=== PATIENT | female | born 1940 | race Caucasian/White ===

== ENCOUNTER 2019-04-30 15:38 | Inpatient (IN) | payer OTHER, MEDICAID ==
[~2019-04-30] VITALS: Ht 165.1 cm; Wt 65.8 kg
[2019-04-30 15:47] VITALS: BP_SYST 156
[2019-04-30] MEDS ORDERED: NS 500 ML IV ONE (16:00)
[2019-04-30] MEDS ORDERED: HALOPERIDOL LACTATE 5 MG/ML VIAL IM ONE (16:45)
[2019-04-30] MEDS ORDERED: LORazepam 2 MG/ML VIAL IM ONE (16:45)
[2019-04-30] MEDS ORDERED: LORazepam 2 MG/ML VIAL ONE (16:47)
[2019-04-30 17:58] LABS: COLOR,URINE YELLOW (YELLOW)
[2019-04-30 17:59] LABS: BILIRUBIN,URINE NEGATIVE (NEGATIVE); BLOOD, URINE TRACE (NEGATIVE); CLARITY/URINE HAZY (CLEAR); GLUCOSE,URINE NEGATIVE (NEGATIVE); KETONES,URINE NEGATIVE (NEGATIVE); LEUKOCYTE ESTERASE ,URINE 1+ (NEGATIVE); NITRITE, URINE POSITIVE (NEGATIVE); PH,URINE 6.5 (5.0-8.0); PROTEIN URINE 1+ (NEGATIVE); UROBILINOGEN,URINE 0.2 (0.2-1.0)
[2019-04-30 18:00] LABS: BACTERIA,URINE MANY /HPF (None Seen); MUCUS,URINE None Seen /LPF (None Seen); RBC,URINE NONE SEEN /HPF (0-3)
[2019-04-30] MEDS ORDERED: cefTRIAXone 1 GM in D5W 50 ML IV ONE (18:15)
[2019-04-30 18:53] LABS: BASOPHILS % (AUTO) 0.3 % (0.0-2.0); EOSINOPHILS # (AUTO) 0.1 K/uL (0.0-0.4); EOSINOPHILS % (AUTO) 1.2 % (0.0-4.0); HEMATOCRIT 40.7 % (36-48); HEMOGLOBIN 13.9 g/dL (12.0-16.0); LYMPHOCYTES # (AUTO) 1.6 K/uL (1.0-5.5); LYMPHOCYTES % (AUTO) 16.3 % (20.5-51.5); MEAN CORPUSCULAR HEMOGLOBIN 32 pg (27-31); MEAN CORPUSCULAR HGB CONC 34 % (32-36); MEAN CORPUSCULAR VOLUME 92 fL (79.0-98.0); MONOCYTES # (AUTO) 0.9 K/uL (0.0-1.0); MONOCYTES % (AUTO) 9.4 % (1.7-9.3); NEUTROPHILS % (AUTO) 72.8 % (40.0-70.0); PLATELET COUNT (AUTO) 291 K/uL (130-430); RED BLOOD CELL COUNT(AUTO) 4.41 MIL/uL (4.2-6.2); RED CELL DISTRIBUTION WIDTH 13.3 % (9.0-15.0); WHITE BLOOD COUNT (AUTO) 9.7 K/uL (4.8-10.8)
[2019-04-30 19:05] LABS: ANION GAP 9 (5-15); CALCIUM 9.9 mg/dL (8.4-11.0); CHLORIDE 104 mmol/L (98-107); CREATININE 1.13 mg/dL (0.55-1.30); GLUCOSE 101 mg/dL (70-99); POTASSIUM 3.6 mmol/L (3.5-5.1); SODIUM SERUM 136 mmol/L (136-145); UREA NITROGEN, BLOOD 20 mg/dL (8-21)
[2019-04-30 19:08] LABS: INR 1.1 (0.8-1.2); PROTHROMBIN TIME 11.1 SECS (9.5-12.5)
[2019-04-30 19:11] LABS: ALANINE AMINOTRANSFERASE 21 U/L (12-78); ALBUMIN 4.1 g/dL (3.4-4.8); ASPARTATE AMINOTRANSFERASE 28 U/L (10-37); TOTAL BILIRUBIN 0.6 mg/dL (0.0-1.0)
[2019-04-30] MEDS ORDERED: ASPIRIN 81 MG TAB.CHEW PO ONE (19:15)
[2019-04-30] MEDS ORDERED: cefTRIAXone 1 GM VIAL ONE (19:23)
[2019-04-30 20:33] VITALS: BP_SYST 143
[2019-04-30] MEDS ORDERED: KCL 20 mEq in D5/0.45NS 1000mL 1,000 ML IV ONE (20:39)
[2019-04-30] MEDS: KCL 20 mEq in D5/0.45NS 1000mL 1,000 ML IV SCH (23:02)
[2019-05-01 00:03] VITALS: BP_SYST 115
[2019-05-01 08:04] VITALS: BP_SYST 137
[2019-05-01] MEDS: HALOPERIDOL 5 MG TABLET (HALDOL) PO SCH ×4 (09:00→20:25)
[2019-05-01] MEDS ORDERED: DIPHENHYDRAMINE HCL 25 MG CAPSULE PO PRN (11:00)
[2019-05-01] MEDS ORDERED: LORazepam 2 MG/ML VIAL IM ONE (11:00)
[2019-05-01] MEDS ORDERED: HALOPERIDOL 5 MG TABLET (HALDOL) PO PRN (11:00)
[2019-05-01] MEDS ORDERED: DIPHENHYDRAMINE INJ 50 MG/ML VIAL IM ONE (11:00)
[2019-05-01] MEDS ORDERED: HALOPERIDOL LACTATE 5 MG/ML VIAL IM ONE (11:00)
[2019-05-01] MEDS ORDERED: LORazepam 2 MG/ML VIAL ONE (11:10)
[2019-05-01] MEDS ORDERED: DIPHENHYDRAMINE INJ 50 MG/ML VIAL ONE (11:11)
[2019-05-01] MEDS ORDERED: HALOPERIDOL LACTATE 5 MG/ML VIAL ONE (11:11)
[2019-05-01 12:29] VITALS: BP_SYST 151
[2019-05-01] MEDS: KCL 20 mEq in D5/0.45NS 1000mL 1,000 ML IV SCH ×2 (16:00→21:55)
[2019-05-01] MEDS: cefTRIAXone 1 GM in D5W 50 ML IV SCH (16:01)
[2019-05-01 16:51] VITALS: BP_SYST 168
[2019-05-01] MEDS: ENOXAPARIN SODIUM 40 MG/0.4 ML SYRINGE SUBCUT SCH (21:57)
[2019-05-01] MEDS: LORazepam 1 MG TABLET PO PRN (21:58)
[2019-05-02 00:12] VITALS: BP_SYST 156
[2019-05-02 06:51] VITALS: BP_SYST 135
[2019-05-02 07:53] LABS: BASOPHILS % (AUTO) 0.4 % (0.0-2.0); EOSINOPHILS # (AUTO) 0.1 K/uL (0.0-0.4); EOSINOPHILS % (AUTO) 0.5 % (0.0-4.0); HEMATOCRIT 41.3 % (36-48); HEMOGLOBIN 14.3 g/dL (12.0-16.0); LYMPHOCYTES # (AUTO) 1.3 K/uL (1.0-5.5); LYMPHOCYTES % (AUTO) 12.8 % (20.5-51.5); MEAN CORPUSCULAR HEMOGLOBIN 32 pg (27-31); MEAN CORPUSCULAR HGB CONC 35 % (32-36); MEAN CORPUSCULAR VOLUME 92 fL (79.0-98.0); MONOCYTES # (AUTO) 0.9 K/uL (0.0-1.0); MONOCYTES % (AUTO) 8.8 % (1.7-9.3); NEUTROPHILS # (AUTO) 8.1 K/uL (1.8-7.7); NEUTROPHILS % (AUTO) 77.5 % (40.0-70.0); PLATELET COUNT (AUTO) 302 K/uL (130-430); RED BLOOD CELL COUNT(AUTO) 4.48 MIL/uL (4.2-6.2); RED CELL DISTRIBUTION WIDTH 13.5 % (9.0-15.0); WHITE BLOOD COUNT (AUTO) 10.5 K/uL (4.8-10.8)
[2019-05-02 08:00] VITALS: BP_SYST 130
[2019-05-02 08:31] LABS: ANION GAP 11 (5-15); CALCIUM 9.3 mg/dL (8.4-11.0); CHLORIDE 104 mmol/L (98-107); CREATININE 1.01 mg/dL (0.55-1.30); GLUCOSE 104 mg/dL (70-99); POTASSIUM 3.4 mmol/L (3.5-5.1); SODIUM SERUM 137 mmol/L (136-145); UREA NITROGEN, BLOOD 13 mg/dL (8-21)
[2019-05-02] MEDS: amLODIPine BESYLATE 10 MG TABLET PO SCH (08:50)
[2019-05-02] MEDS: HALOPERIDOL 5 MG TABLET (HALDOL) PO SCH ×3 (08:50→21:22)
[2019-05-02 12:10] VITALS: BP_SYST 133
[2019-05-02] MEDS: KCL 20 mEq in D5/0.45NS 1000mL 1,000 ML IV SCH (12:17)
[2019-05-02 16:04] VITALS: BP_SYST 144
[2019-05-02] MEDS: cefTRIAXone 1 GM in D5W 50 ML IV SCH (16:23)
[2019-05-02] MEDS ORDERED: ASPIRIN 81 MG TAB.CHEW PO ONE (19:15)
[2019-05-02 21:15] VITALS: BP_SYST 130
[2019-05-02] MEDS: ENOXAPARIN SODIUM 40 MG/0.4 ML SYRINGE SUBCUT SCH (21:23)
[2019-05-02] MEDS: LORazepam 1 MG TABLET PO PRN (23:06)
[2019-05-03 00:15] VITALS: BP_SYST 147
[2019-05-03] MEDS: KCL 20 mEq in D5/0.45NS 1000mL 1,000 ML IV SCH ×3 (00:35→17:06)
[2019-05-03 00:51] LABS: CKMB RELATIVE INDEX 0.3 (0.0-2.9); CREATINE KINASE MB 3.8 ng/mL (0-3.6)
[2019-05-03] MEDS ORDERED: traZODone HCL 50 MG TABLET (DESYREL) PO PRN (05:45)
[2019-05-03 06:42] LABS: BASOPHILS # (AUTO) 0.1 K/uL (0.0-0.2); BASOPHILS % (AUTO) 0.5 % (0.0-2.0); EOSINOPHILS # (AUTO) 0.3 K/uL (0.0-0.4); EOSINOPHILS % (AUTO) 2.5 % (0.0-4.0); HEMOGLOBIN 13.9 g/dL (12.0-16.0); LYMPHOCYTES # (AUTO) 2.1 K/uL (1.0-5.5); LYMPHOCYTES % (AUTO) 20.9 % (20.5-51.5); MEAN CORPUSCULAR HEMOGLOBIN 32 pg (27-31); MEAN CORPUSCULAR HGB CONC 35 % (32-36); MEAN CORPUSCULAR VOLUME 91 fL (79.0-98.0); MONOCYTES # (AUTO) 0.9 K/uL (0.0-1.0); MONOCYTES % (AUTO) 8.4 % (1.7-9.3); NEUTROPHILS % (AUTO) 67.7 % (40.0-70.0); PLATELET COUNT (AUTO) 296 K/uL (130-430); RED BLOOD CELL COUNT(AUTO) 4.39 MIL/uL (4.2-6.2); RED CELL DISTRIBUTION WIDTH 13.3 % (9.0-15.0); WHITE BLOOD COUNT (AUTO) 10.3 K/uL (4.8-10.8)
[2019-05-03 07:11] LABS: ANION GAP 11 (5-15); CALCIUM 9.3 mg/dL (8.4-11.0); CHLORIDE 103 mmol/L (98-107); CREATININE 0.99 mg/dL (0.55-1.30); GLUCOSE 114 mg/dL (70-99); POTASSIUM 3.6 mmol/L (3.5-5.1); SODIUM SERUM 136 mmol/L (136-145); UREA NITROGEN, BLOOD 11 mg/dL (8-21)
[2019-05-03 07:27] LABS: ALANINE AMINOTRANSFERASE 38 U/L (12-78); ALBUMIN 3.6 g/dL (3.4-4.8); ASPARTATE AMINOTRANSFERASE 65 U/L (10-37); THYROID STIMULATING HORMONE 1.26 uIu/mL (0.36-3.74); TOTAL BILIRUBIN 0.6 mg/dL (0.0-1.0)
[2019-05-03 07:45] LABS: CHOLESTEROL 176 mg/dL (<200); HDL CHOLESTEROL 64 mg/dL (>55); LDL CHOLESTEROL 97 mg/dL (<100); TRIGLYCERIDES 123 mg/dL (30-150)
[2019-05-03 08:02] VITALS: BP_SYST 137
[2019-05-03] MEDS: amLODIPine BESYLATE 10 MG TABLET PO SCH (09:31)
[2019-05-03] MEDS: clonazePAM 0.5 MG TABLET PO SCH ×3 (09:31→20:18)
[2019-05-03] MEDS: ASPIRIN 81 MG TAB.CHEW PO SCH (09:32)
[2019-05-03] MEDS: HALOPERIDOL 5 MG TABLET (HALDOL) PO SCH ×4 (09:32→20:18)
[2019-05-03 12:22] VITALS: BP_SYST 130
[2019-05-03] MEDS: cefTRIAXone 1 GM in D5W 50 ML IV SCH (16:10)
[2019-05-03 16:17] VITALS: BP_SYST 126; BP_SYST 93
[2019-05-03 20:00] VITALS: BP_SYST 155
[2019-05-03] MEDS: traZODone HCL 50 MG TABLET (DESYREL) PO SCH (20:18)
[2019-05-03] MEDS: ENOXAPARIN SODIUM 40 MG/0.4 ML SYRINGE SUBCUT SCH (20:20)
[2019-05-04] VITALS (7 sets, daily range): BP systolic 117–142
[2019-05-04] MEDS: ASPIRIN 81 MG TAB.CHEW PO SCH (08:14)
[2019-05-04] MEDS: QUEtiapine FUMARATE 25 MG TABLET PO SCH ×2 (08:15→15:07)
[2019-05-04] MEDS: amLODIPine BESYLATE 10 MG TABLET PO SCH (08:15)
[2019-05-04] MEDS: HALOPERIDOL 5 MG TABLET (HALDOL) PO SCH ×3 (08:15→21:22)
[2019-05-04] MEDS: clonazePAM 0.5 MG TABLET PO SCH ×3 (08:15→21:22)
[2019-05-04 08:44] LABS: BASOPHILS # (AUTO) 0.1 K/uL (0.0-0.2); BASOPHILS % (AUTO) 0.7 % (0.0-2.0); EOSINOPHILS # (AUTO) 0.3 K/uL (0.0-0.4); EOSINOPHILS % (AUTO) 4.2 % (0.0-4.0); HEMATOCRIT 39.7 % (36-48); HEMOGLOBIN 13.5 g/dL (12.0-16.0); LYMPHOCYTES # (AUTO) 1.4 K/uL (1.0-5.5); LYMPHOCYTES % (AUTO) 16.7 % (20.5-51.5); MEAN CORPUSCULAR HEMOGLOBIN 32 pg (27-31); MEAN CORPUSCULAR HGB CONC 34 % (32-36); MEAN CORPUSCULAR VOLUME 93 fL (79.0-98.0); MONOCYTES # (AUTO) 0.6 K/uL (0.0-1.0); MONOCYTES % (AUTO) 7.5 % (1.7-9.3); NEUTROPHILS # (AUTO) 5.8 K/uL (1.8-7.7); NEUTROPHILS % (AUTO) 70.9 % (40.0-70.0); PLATELET COUNT (AUTO) 292 K/uL (130-430); RED BLOOD CELL COUNT(AUTO) 4.28 MIL/uL (4.2-6.2); RED CELL DISTRIBUTION WIDTH 13.4 % (9.0-15.0); WHITE BLOOD COUNT (AUTO) 8.1 K/uL (4.8-10.8)
[2019-05-04 09:03] LABS: ANION GAP 9 (5-15); CHLORIDE 105 mmol/L (98-107); CREATININE 0.82 mg/dL (0.55-1.30); GLUCOSE 114 mg/dL (70-99); POTASSIUM 3.4 mmol/L (3.5-5.1); SODIUM SERUM 139 mmol/L (136-145); UREA NITROGEN, BLOOD 7 mg/dL (8-21)
[2019-05-04] MEDS: KCL 20 mEq in D5/0.45NS 1000mL 1,000 ML IV SCH (09:33)
[2019-05-04] MEDS: cefTRIAXone 1 GM in D5W 50 ML IV SCH (15:06)
[2019-05-04] MEDS ORDERED: QUEtiapine FUMARATE 25 MG TABLET PO SCH (21:00)
[2019-05-04] MEDS ORDERED: FLU VACC TS2019(65UP)/MF59C/PF 45 MCG/0.5 ML SYRINGE I.M. PRN (21:00)
[2019-05-04] MEDS: traZODone HCL 50 MG TABLET (DESYREL) PO SCH (21:21)
[2019-05-04] MEDS ORDERED: FLU VACC TS2019(65UP)/MF59C/PF 45 MCG/0.5 ML SYRINGE I.M. ONE (21:25)
[2019-05-04] MEDS: ENOXAPARIN SODIUM 40 MG/0.4 ML SYRINGE SUBCUT SCH (21:30)
[2019-05-05 15:39] LABS: CHOLESTEROL 192 mg/dL (<200); HDL CHOLESTEROL 65 mg/dL (>55); LDL CHOLESTEROL 109 mg/dL (<100); TRIGLYCERIDES 95 mg/dL (30-150)
== END 2019-05-04 21:50 | DRG 689 ==
LOC: SED 15:38 → STU 19:14 → SMU 05-01 16:17 → STU 05-02 21:07
PROVIDERS: ADMIT Family Medicine; ATTEND Family Medicine
DX: N39.0 Urinary tract infection, site not specified (principal); I21.A1 Myocardial infarction type 2; F03.90 Unspecified dementia, unspecified severity, without behavioral disturbance, psychotic disturbance, mood disturbance, and anxiety; E86.0 Dehydration; M19.90 Unspecified osteoarthritis, unspecified site; N18.9 Chronic kidney disease, unspecified; G40.909 Epilepsy, unspecified, not intractable, without status epilepticus; I12.9 Hypertensive chronic kidney disease with stage 1 through stage 4 chronic kidney disease, or unspecified chronic kidney disease; G47.00 Insomnia, unspecified; Z78.1 Physical restraint status; Z79.899 Other long term (current) drug therapy; R40.2243 Coma scale, best verbal response, confused conversation, at hospital admission
CPT/HCPCS: 36415; 71045; 80048; 80053; 80061; 81000-TC; 82550-TC; 82553-TC; 83036; 83605; 83735-TC; 84443-TC; 84484; 85025; 85610-TC; 85730-TC; 87040-TC; 87081; 87086; 87186-TC; 93005; 93306; 96365; 96372; 97530-GP; 99285; G0378; J0696; J1200; J1630; J1650; J2060; J7040; J7060; Q0163

== ENCOUNTER 2019-05-08 13:52 | Outpatient (CLI) | payer OTHER ==
[2019-05-08 15:37] LABS: BILIRUBIN,URINE NEGATIVE (NEGATIVE); BLOOD, URINE 1+ (NEGATIVE); CLARITY/URINE CLOUDY (CLEAR); COLOR,URINE YELLOW (YELLOW); GLUCOSE,URINE NEGATIVE (NEGATIVE); KETONES,URINE NEGATIVE (NEGATIVE); LEUKOCYTE ESTERASE ,URINE NEGATIVE (NEGATIVE); NITRITE, URINE NEGATIVE (NEGATIVE); PROTEIN URINE 1+ (NEGATIVE); UROBILINOGEN,URINE 0.2 (0.2-1.0)
[2019-05-08 15:39] LABS: BASOPHILS % (AUTO) 0.3 % (0.0-2.0); EOSINOPHILS # (AUTO) 0.5 K/uL (0.0-0.4); EOSINOPHILS % (AUTO) 3.4 % (0.0-4.0); HEMOGLOBIN 13.7 g/dL (12.0-16.0); LYMPHOCYTES # (AUTO) 1.5 K/uL (1.0-5.5); LYMPHOCYTES % (AUTO) 9.6 % (20.5-51.5); MEAN CORPUSCULAR HEMOGLOBIN 32 pg (27-31); MEAN CORPUSCULAR HGB CONC 34 % (32-36); MEAN CORPUSCULAR VOLUME 92 fL (79.0-98.0); RED BLOOD CELL COUNT(AUTO) 4.34 MIL/uL (4.2-6.2); WHITE BLOOD COUNT (AUTO) 15.5 K/uL (4.8-10.8)
[2019-05-08 15:45] LABS: ANION GAP 9 (5-15); CALCIUM 9.8 mg/dL (8.4-11.0); CHLORIDE 102 mmol/L (98-107); CREATININE 1.14 mg/dL (0.55-1.30); GLUCOSE 127 mg/dL (70-99); POTASSIUM 3.4 mmol/L (3.5-5.1); SODIUM SERUM 139 mmol/L (136-145); UREA NITROGEN, BLOOD 38 mg/dL (8-21)
[2019-05-08 15:54] LABS: BASOPHILS # (AUTO) 0.1 K/uL (0.0-0.2); HEMATOCRIT 39.7 % (36-48); MONOCYTES # (AUTO) 1.1 K/uL (0.0-1.0); MONOCYTES % (AUTO) 7.1 % (1.7-9.3); NEUTROPHILS # (AUTO) 12.3 K/uL (1.8-7.7); NEUTROPHILS % (AUTO) 79.6 % (40.0-70.0); PLATELET COUNT (AUTO) 317 K/uL (130-430); RED CELL DISTRIBUTION WIDTH 13.7 % (9.0-15.0)
[2019-05-08 16:36] LABS: BACTERIA,URINE MANY /HPF (None Seen); COARSE GRANULAR CASTS,URINE 0-10 /LPF (None Seen); URINE AMORPHOUS URATE 2+ /HPF (None Seen)
[2019-05-08 16:37] LABS: MUCUS,URINE 1+ /LPF (None Seen)
== END 2019-05-08 17:54 | disposition home or self-care (01) ==
LOC: SLB 13:52
PROVIDERS: ATTEND Psychiatry & Neurology Psychiatry
DX: Z00.00 Encounter for general adult medical examination without abnormal findings (principal)
CPT/HCPCS: 36415; 80048; 81000-TC; 85025; 87086

== ENCOUNTER → 2019-05-10 | Outpatient (CLI) | payer OTHER ==
[2019-05-10 12:14] LABS: ANION GAP 10 (5-15); CHLORIDE 105 mmol/L (98-107); GLUCOSE 128 mg/dL (70-99); POTASSIUM 4.3 mmol/L (3.5-5.1); SODIUM SERUM 141 mmol/L (136-145); UREA NITROGEN, BLOOD 40 mg/dL (8-21)
[2019-05-10 13:17] LABS: BILIRUBIN,URINE NEGATIVE (NEGATIVE); BLOOD, URINE 2+ (NEGATIVE); CLARITY/URINE CLEAR (CLEAR); COLOR,URINE YELLOW (YELLOW); GLUCOSE,URINE NEGATIVE (NEGATIVE); KETONES,URINE NEGATIVE (NEGATIVE); LEUKOCYTE ESTERASE ,URINE NEGATIVE (NEGATIVE); NITRITE, URINE NEGATIVE (NEGATIVE); PH,URINE 5.5 (5.0-8.0); PROTEIN URINE 1+ (NEGATIVE); UROBILINOGEN,URINE 0.2 (0.2-1.0)
[2019-05-10 13:21] LABS: BACTERIA,URINE FEW /HPF (None Seen); RBC,URINE 20-50 /HPF (0-3); YEAST,URINE Moderate /HPF (None Seen)
== END | disposition home or self-care (01) ==
LOC: SLB 09:40
PROVIDERS: ATTEND Psychiatry & Neurology Psychiatry
DX: Z00.00 Encounter for general adult medical examination without abnormal findings (principal)
CPT/HCPCS: 36415; 80048; 81000-TC; 87086

== ENCOUNTER 2019-05-14 14:59 | Outpatient (CLI) | payer OTHER ==
[2019-05-14 15:30] LABS: BILIRUBIN,URINE NEGATIVE (NEGATIVE); BLOOD, URINE 2+ (NEGATIVE); COLOR,URINE YELLOW (YELLOW); GLUCOSE,URINE NEGATIVE (NEGATIVE); KETONES,URINE NEGATIVE (NEGATIVE); NITRITE, URINE POSITIVE (NEGATIVE); PROTEIN URINE TRACE (NEGATIVE); UROBILINOGEN,URINE 0.2 (0.2-1.0)
[2019-05-14 15:38] LABS: CLARITY/URINE HAZY (CLEAR); LEUKOCYTE ESTERASE ,URINE 3+ (NEGATIVE)
[2019-05-14 15:40] LABS: BACTERIA,URINE MODERATE /HPF (None Seen); WBC,URINE 50-80 /HPF (0-3)
[2019-05-14 15:41] LABS: MUCUS,URINE None Seen /LPF (None Seen); YEAST,URINE Few /HPF (None Seen)
== END 2019-05-14 16:00 | disposition home or self-care (01) ==
LOC: SLB 14:59
PROVIDERS: ATTEND Psychiatry & Neurology Psychiatry
DX: F29 Unspecified psychosis not due to a substance or known physiological condition (principal); F03.90 Unspecified dementia, unspecified severity, without behavioral disturbance, psychotic disturbance, mood disturbance, and anxiety
CPT/HCPCS: 81000-TC; 87086

== ENCOUNTER 2019-05-15 21:09 | Inpatient (IN) | payer OTHER, MEDICAID ==
[~2019-05-15] VITALS: Ht 162.6 cm; Wt 60.8 kg
[2019-05-15 23:00] VITALS: BP_SYST 153
[2019-05-16] MEDS ORDERED: ACET325T53 PO ×2 (00:26)
[2019-05-16] MEDS ORDERED: DIPH25CA83 PO (00:26)
[2019-05-16] MEDS ORDERED: PHEN-726 PO (00:26)
[2019-05-16] MEDS ORDERED: NOR10 PO (00:26)
[2019-05-16] MEDS ORDERED: NYST15PO2 TP (00:26)
[2019-05-16] MEDS ORDERED: SER25 PO (00:26)
[2019-05-16] MEDS ORDERED: HAL5 PO ×2 (00:26)
[2019-05-16] MEDS ORDERED: TRAZ-250 PO (00:26)
[2019-05-16] MEDS ORDERED: MOM PO (00:26)
[2019-05-16] MEDS ORDERED: CLON0.5T12 PO (00:26)
[2019-05-16] MEDS ORDERED: QUET50TA PO (00:26)
[2019-05-16] MEDS ORDERED: DIF100 PO (00:26)
[2019-05-16] MEDS ORDERED: MEGE40TA PO (00:26)
[2019-05-16] MEDS ORDERED: ASPI-1077 PO (00:26)
[2019-05-16] MEDS ORDERED: LORA-258 PO (00:26)
[2019-05-16] MEDS ORDERED: LOVI40 SQ (00:26)
[2019-05-16] MEDS ORDERED: HALOPERIDOL 5 MG TABLET (HALDOL) PO PRN (00:30)
[2019-05-16] MEDS ORDERED: ACETAMINOPHEN 325 MG TABLET PO PRN ×2 (00:30)
[2019-05-16] MEDS ORDERED: LORazepam 1 MG TABLET PO PRN (00:30)
[2019-05-16] MEDS ORDERED: CEFEPIME 1 GM/VIAL (MAXIPIME) ONE (01:47)
[2019-05-16] MEDS ORDERED: KCL 20 mEq in D5/0.45NS 1000mL 1,000 ML IV ONE (01:47)
[2019-05-16] MEDS: CEFEPIME 1 GM in D5W 50 ML IV SCH ×3 (02:08→21:53)
[2019-05-16] MEDS: KCL 20 mEq in D5/0.45NS 1000mL 1,000 ML IV SCH ×2 (02:09→16:52)
[2019-05-16 02:48] LABS: BILIRUBIN,URINE NEGATIVE (NEGATIVE); BLOOD, URINE 3+ (NEGATIVE); CLARITY/URINE SL CLOUDY (CLEAR); GLUCOSE,URINE TRACE (NEGATIVE); KETONES,URINE NEGATIVE (NEGATIVE); LEUKOCYTE ESTERASE ,URINE 2+ (NEGATIVE); NITRITE, URINE POSITIVE (NEGATIVE); PH,URINE 5.5 (5.0-8.0); PROTEIN URINE 2+ (NEGATIVE)
[2019-05-16 02:58] LABS: COLOR,URINE ORANGE (YELLOW)
[2019-05-16 03:07] LABS: BACTERIA,URINE MANY /HPF (None Seen); RBC,URINE 20-50 /HPF (0-3); WBC,URINE >100 /HPF (0-3); YEAST,URINE Many /HPF (None Seen)
[2019-05-16 07:48] LABS: ALANINE AMINOTRANSFERASE 57 U/L (12-78); ANION GAP 7 (5-15); ASPARTATE AMINOTRANSFERASE 37 U/L (10-37); CALCIUM 9.9 mg/dL (8.4-11.0); CHLORIDE 119 mmol/L (98-107); CREATININE 1.21 mg/dL (0.55-1.30); GLUCOSE 168 mg/dL (70-99); POTASSIUM 3.2 mmol/L (3.5-5.1); SODIUM SERUM 156 mmol/L (136-145); TOTAL BILIRUBIN 0.4 mg/dL (0.0-1.0); UREA NITROGEN, BLOOD 62 mg/dL (8-21)
[2019-05-16 07:56] LABS: BASOPHILS % (AUTO) 0.3 % (0.0-2.0); EOSINOPHILS # (AUTO) 0.2 K/uL (0.0-0.4); EOSINOPHILS % (AUTO) 1.5 % (0.0-4.0); HEMATOCRIT 44.9 % (36-48); LYMPHOCYTES # (AUTO) 1.8 K/uL (1.0-5.5); LYMPHOCYTES % (AUTO) 14.5 % (20.5-51.5); MEAN CORPUSCULAR HEMOGLOBIN 31 pg (27-31); MEAN CORPUSCULAR HGB CONC 33 % (32-36); MEAN CORPUSCULAR VOLUME 94 fL (79.0-98.0); MONOCYTES % (AUTO) 7.8 % (1.7-9.3); NEUTROPHILS # (AUTO) 9.6 K/uL (1.8-7.7); NEUTROPHILS % (AUTO) 75.9 % (40.0-70.0); PLATELET COUNT (AUTO) 544 K/uL (130-430); RED BLOOD CELL COUNT(AUTO) 4.77 MIL/uL (4.2-6.2); RED CELL DISTRIBUTION WIDTH 13.7 % (9.0-15.0); WHITE BLOOD COUNT (AUTO) 12.6 K/uL (4.8-10.8)
[2019-05-16 08:32] VITALS: BP_SYST 117
[2019-05-16] MEDS ORDERED: ENOXAPARIN SODIUM 40 MG/0.4 ML SYRINGE SQ SCH (09:00)
[2019-05-16] MEDS ORDERED: NYSTATIN 15 GM TOPICAL POWDER TP SCH (09:00)
[2019-05-16] MEDS: PHENAZOPYRIDINE HCL 100 MG TABLET PO SCH ×2 (09:21→21:56)
[2019-05-16] MEDS: FLUCONAZOLE 100 MG TABLET (DIFLUCAN) PO SCH (09:22)
[2019-05-16] MEDS: ASPIRIN 81 MG TAB.CHEW PO SCH (09:22)
[2019-05-16] MEDS: MEGESTROL ACETATE 40 MG TABLET PO SCH ×2 (09:22→22:03)
[2019-05-16] MEDS: amLODIPine BESYLATE 10 MG TABLET PO SCH (09:23)
[2019-05-16] MEDS: clonazePAM 0.5 MG TABLET PO SCH ×2 (10:27→21:56)
[2019-05-16] MEDS: QUEtiapine FUMARATE 25 MG TABLET PO SCH (10:28)
[2019-05-16 12:25] VITALS: BP_SYST 116
[2019-05-16] MEDS: EMOLLIENT COMBINATION NO.73 78 GM CREAM..G. TP SCH ×2 (14:00→21:56)
[2019-05-16 16:20] VITALS: BP_SYST 133
[2019-05-16 20:18] VITALS: BP_SYST 119
[2019-05-16] MEDS ORDERED: traZODone HCL 50 MG TABLET (DESYREL) PO SCH (21:00)
[2019-05-16] MEDS ORDERED: QUEtiapine FUMARATE 25 MG TABLET PO SCH (21:00)
[2019-05-16] MEDS ORDERED: HALOPERIDOL 5 MG TABLET (HALDOL) PO SCH (21:00)
[2019-05-16] MEDS: NYSTATIN 15 GM TOPICAL POWDER TP SCH (21:55)
[2019-05-16] MEDS: MILK OF MAGNESIA 30 ML UDC PO SCH (21:57)
[2019-05-17] VITALS: BP_SYST 104
[2019-05-17] MEDS: KCL 20 mEq in D5/0.45NS 1000mL 1,000 ML IV SCH ×2 (05:17→18:40)
[2019-05-17 07:24] LABS: BASOPHILS % (AUTO) 0.2 % (0.0-2.0); EOSINOPHILS # (AUTO) 0.4 K/uL (0.0-0.4); EOSINOPHILS % (AUTO) 2.8 % (0.0-4.0); HEMATOCRIT 39.5 % (36-48); LYMPHOCYTES # (AUTO) 2.1 K/uL (1.0-5.5); LYMPHOCYTES % (AUTO) 16.6 % (20.5-51.5); MEAN CORPUSCULAR HEMOGLOBIN 31 pg (27-31); MEAN CORPUSCULAR HGB CONC 33 % (32-36); MEAN CORPUSCULAR VOLUME 95 fL (79.0-98.0); MONOCYTES # (AUTO) 0.8 K/uL (0.0-1.0); MONOCYTES % (AUTO) 6.7 % (1.7-9.3); NEUTROPHILS # (AUTO) 9.4 K/uL (1.8-7.7); NEUTROPHILS % (AUTO) 73.7 % (40.0-70.0); PLATELET COUNT (AUTO) 457 K/uL (130-430); RED BLOOD CELL COUNT(AUTO) 4.15 MIL/uL (4.2-6.2); RED CELL DISTRIBUTION WIDTH 13.8 % (9.0-15.0); WHITE BLOOD COUNT (AUTO) 12.7 K/uL (4.8-10.8)
[2019-05-17 07:44] LABS: ANION GAP 7 (5-15); CALCIUM 8.7 mg/dL (8.4-11.0); CREATININE 1.16 mg/dL (0.55-1.30); GLUCOSE 158 mg/dL (70-99); PHOSPHORUS 2.8 mg/dL (2.7-4.5); POTASSIUM 3.6 mmol/L (3.5-5.1); SODIUM SERUM 153 mmol/L (136-145); UREA NITROGEN, BLOOD 52 mg/dL (8-21)
[2019-05-17 08:00] VITALS: BP_SYST 142
[2019-05-17 08:10] LABS: CHLORIDE 120 mmol/L (98-107)
[2019-05-17 08:28] LABS: INR 1.3 (0.8-1.2); PROTHROMBIN TIME 13.3 SECS (9.5-12.5)
[2019-05-17] MEDS: CEFEPIME 1 GM in D5W 50 ML IV SCH ×2 (08:54→21:23)
[2019-05-17] MEDS: FLUCONAZOLE 100 MG TABLET (DIFLUCAN) PO SCH (08:55)
[2019-05-17] MEDS: ASPIRIN 81 MG TAB.CHEW PO SCH (08:55)
[2019-05-17] MEDS: clonazePAM 0.5 MG TABLET PO SCH (08:55)
[2019-05-17] MEDS: amLODIPine BESYLATE 10 MG TABLET PO SCH (08:55)
[2019-05-17] MEDS: QUEtiapine FUMARATE 25 MG TABLET PO SCH (08:56)
[2019-05-17] MEDS: PHENAZOPYRIDINE HCL 100 MG TABLET PO SCH ×2 (08:56→21:23)
[2019-05-17] MEDS: ENOXAPARIN SODIUM 30 MG/0.3 ML SYRINGE SUBCUT SCH (08:57)
[2019-05-17] MEDS: NYSTATIN 15 GM TOPICAL POWDER TP SCH ×2 (09:00→21:23)
[2019-05-17] MEDS: MEGESTROL ACETATE 40 MG TABLET PO SCH (09:00)
[2019-05-17] MEDS: EMOLLIENT COMBINATION NO.73 78 GM CREAM..G. TP SCH ×2 (09:00→21:25)
[2019-05-17 12:00] VITALS: BP_SYST 116
[2019-05-17] MEDS: FLUCONAZOLE 100 mg/ NS 50 ML IV SCH (13:41)
[2019-05-17 16:00] VITALS: BP_SYST 118
[2019-05-17] MEDS ORDERED: NS 500 ML IV ONE (18:30)
[2019-05-17 19:52] VITALS: BP_SYST 123
[2019-05-17] MEDS: MILK OF MAGNESIA 30 ML UDC PO SCH (21:23)
[2019-05-17] MEDS: MEGESTROL ACETATE 400 MG/10 ML UDC PO SCH (21:23)
[2019-05-18 01:19] VITALS: BP_SYST 120
[2019-05-18] MEDS: KCL 20 mEq in D5/0.45NS 1000mL 1,000 ML IV SCH ×3 (06:08→23:20)
[2019-05-18 07:42] LABS: BASOPHILS % (AUTO) 0.2 % (0.0-2.0); EOSINOPHILS # (AUTO) 0.8 K/uL (0.0-0.4); EOSINOPHILS % (AUTO) 5.1 % (0.0-4.0); HEMATOCRIT 40.4 % (36-48); HEMOGLOBIN 13.3 g/dL (12.0-16.0); LYMPHOCYTES # (AUTO) 3.1 K/uL (1.0-5.5); LYMPHOCYTES % (AUTO) 19.7 % (20.5-51.5); MEAN CORPUSCULAR HEMOGLOBIN 31 pg (27-31); MEAN CORPUSCULAR HGB CONC 33 % (32-36); MEAN CORPUSCULAR VOLUME 95 fL (79.0-98.0); MONOCYTES # (AUTO) 0.8 K/uL (0.0-1.0); MONOCYTES % (AUTO) 5.4 % (1.7-9.3); NEUTROPHILS # (AUTO) 10.8 K/uL (1.8-7.7); NEUTROPHILS % (AUTO) 69.6 % (40.0-70.0); PLATELET COUNT (AUTO) 410 K/uL (130-430); RED BLOOD CELL COUNT(AUTO) 4.26 MIL/uL (4.2-6.2); RED CELL DISTRIBUTION WIDTH 13.9 % (9.0-15.0); WHITE BLOOD COUNT (AUTO) 15.5 K/uL (4.8-10.8)
[2019-05-18 08:00] VITALS: BP_SYST 114
[2019-05-18] MEDS: ASPIRIN 81 MG TAB.CHEW PO SCH (08:32)
[2019-05-18] MEDS: PHENAZOPYRIDINE HCL 100 MG TABLET PO SCH ×2 (08:32→21:00)
[2019-05-18] MEDS: MEGESTROL ACETATE 400 MG/10 ML UDC PO SCH ×2 (08:35→21:00)
[2019-05-18] MEDS: ENOXAPARIN SODIUM 30 MG/0.3 ML SYRINGE SUBCUT SCH (08:38)
[2019-05-18] MEDS: EMOLLIENT COMBINATION NO.73 78 GM CREAM..G. TP SCH ×2 (08:39→21:00)
[2019-05-18] MEDS: NYSTATIN 15 GM TOPICAL POWDER TP SCH ×2 (08:39→21:00)
[2019-05-18] MEDS: amLODIPine BESYLATE 10 MG TABLET PO SCH (08:39)
[2019-05-18] MEDS: CEFEPIME 1 GM in D5W 50 ML IV SCH ×2 (08:40→21:00)
[2019-05-18 09:34] LABS: ALANINE AMINOTRANSFERASE 54 U/L (12-78); ALBUMIN 2.5 g/dL (3.4-4.8); ANION GAP 5 (5-15); ASPARTATE AMINOTRANSFERASE 36 U/L (10-37); CALCIUM 8.5 mg/dL (8.4-11.0); CHLORIDE 115 mmol/L (98-107); CREATININE 0.85 mg/dL (0.55-1.30); GLUCOSE 111 mg/dL (70-99); POTASSIUM 3.7 mmol/L (3.5-5.1); SODIUM SERUM 146 mmol/L (136-145); TOTAL BILIRUBIN 0.3 mg/dL (0.0-1.0); UREA NITROGEN, BLOOD 30 mg/dL (8-21)
[2019-05-18 13:12] VITALS: BP_SYST 112
[2019-05-18] MEDS: FLUCONAZOLE 100 mg/ NS 50 ML IV SCH (13:33)
[2019-05-18 17:17] VITALS: BP_SYST 139
[2019-05-18 19:00] VITALS: BP_SYST 134
[2019-05-18 20:00] VITALS: BP_SYST 134
[2019-05-18] MEDS: metroNIDAZOLE 500 mg/NS 100 ML IV SCH (21:00)
[2019-05-18] MEDS: MILK OF MAGNESIA 30 ML UDC PO SCH (21:00)
[2019-05-19 02:19] VITALS: BP_SYST 118
[2019-05-19 07:20] LABS: BASOPHILS % (AUTO) 0.2 % (0.0-2.0); EOSINOPHILS # (AUTO) 0.5 K/uL (0.0-0.4); EOSINOPHILS % (AUTO) 3.5 % (0.0-4.0); HEMATOCRIT 39.9 % (36-48); HEMOGLOBIN 13.5 g/dL (12.0-16.0); LYMPHOCYTES # (AUTO) 2.4 K/uL (1.0-5.5); LYMPHOCYTES % (AUTO) 16.1 % (20.5-51.5); MEAN CORPUSCULAR HEMOGLOBIN 31 pg (27-31); MEAN CORPUSCULAR HGB CONC 34 % (32-36); MEAN CORPUSCULAR VOLUME 92 fL (79.0-98.0); MONOCYTES # (AUTO) 0.8 K/uL (0.0-1.0); MONOCYTES % (AUTO) 5.4 % (1.7-9.3); NEUTROPHILS % (AUTO) 74.8 % (40.0-70.0); PLATELET COUNT (AUTO) 435 K/uL (130-430); RED BLOOD CELL COUNT(AUTO) 4.33 MIL/uL (4.2-6.2); RED CELL DISTRIBUTION WIDTH 13.4 % (9.0-15.0); WHITE BLOOD COUNT (AUTO) 14.7 K/uL (4.8-10.8)
[2019-05-19 07:36] LABS: INR 1.2 (0.8-1.2); PROTHROMBIN TIME 11.7 SECS (9.5-12.5)
[2019-05-19 07:40] LABS: ANION GAP 5 (5-15); CALCIUM 8.7 mg/dL (8.4-11.0); CHLORIDE 111 mmol/L (98-107); CREATININE 0.88 mg/dL (0.55-1.30); GLUCOSE 123 mg/dL (70-99); SODIUM SERUM 137 mmol/L (136-145); UREA NITROGEN, BLOOD 20 mg/dL (8-21)
[2019-05-19 08:20] VITALS: BP_SYST 134
[2019-05-19] MEDS: CEFEPIME 1 GM in D5W 50 ML IV SCH ×2 (08:27→21:38)
[2019-05-19] MEDS: metroNIDAZOLE 500 mg/NS 100 ML IV SCH (08:27)
[2019-05-19] MEDS: amLODIPine BESYLATE 10 MG TABLET PO SCH (09:00)
[2019-05-19] MEDS: ENOXAPARIN SODIUM 30 MG/0.3 ML SYRINGE SUBCUT SCH (09:00)
[2019-05-19] MEDS ORDERED: MEPERIDINE HCL/PF 25 MG/ML DISP.SYRIN ONE ×2 (11:17→11:18)
[2019-05-19] MEDS: MIDAZOLAM HCL 5 MG/5 ML VIAL ONE ×2 (11:38→11:41)
[2019-05-19] MEDS: MEPERIDINE HCL/PF 25 MG/ML DISP.SYRIN ONE ×2 (11:40→11:44)
[2019-05-19 13:00] VITALS: BP_SYST 101
[2019-05-19] MEDS: FLUCONAZOLE 100 mg/ NS 50 ML IV SCH (15:12)
[2019-05-19] MEDS: ASPIRIN 81 MG TAB.CHEW PO SCH (15:12)
[2019-05-19] MEDS: MEGESTROL ACETATE 400 MG/10 ML UDC PO SCH ×2 (15:12→21:38)
[2019-05-19] MEDS: NYSTATIN 15 GM TOPICAL POWDER TP SCH ×2 (15:23→21:39)
[2019-05-19] MEDS: EMOLLIENT COMBINATION NO.73 78 GM CREAM..G. TP SCH ×2 (15:24→21:39)
[2019-05-19] MEDS: KCL 20 mEq in D5/0.45NS 1000mL 1,000 ML IV SCH ×2 (15:31→19:20)
[2019-05-19] MEDS: PHENAZOPYRIDINE HCL 100 MG TABLET PO SCH ×2 (15:31→21:38)
[2019-05-19 17:05] VITALS: BP_SYST 103
[2019-05-19 19:00] VITALS: BP_SYST 105
[2019-05-19 20:00] VITALS: BP_SYST 105
[2019-05-19] MEDS: MILK OF MAGNESIA 30 ML UDC PO SCH (21:38)
[2019-05-20] MEDS ORDERED: HALOPERIDOL LACTATE 5 MG/ML VIAL IM ONE (02:00)
[2019-05-20] MEDS: DIPHENHYDRAMINE HCL 25 MG CAPSULE PO PRN (02:01)
[2019-05-20] MEDS: KCL 20 mEq in D5/0.45NS 1000mL 1,000 ML IV SCH ×2 (05:49→17:45)
[2019-05-20 06:43] LABS: BASOPHILS % (AUTO) 0.3 % (0.0-2.0); EOSINOPHILS # (AUTO) 0.4 K/uL (0.0-0.4); EOSINOPHILS % (AUTO) 3.2 % (0.0-4.0); HEMATOCRIT 38.6 % (36-48); HEMOGLOBIN 13.3 g/dL (12.0-16.0); LYMPHOCYTES # (AUTO) 2.5 K/uL (1.0-5.5); LYMPHOCYTES % (AUTO) 17.7 % (20.5-51.5); MEAN CORPUSCULAR HEMOGLOBIN 32 pg (27-31); MEAN CORPUSCULAR HGB CONC 34 % (32-36); MEAN CORPUSCULAR VOLUME 92 fL (79.0-98.0); MONOCYTES # (AUTO) 0.7 K/uL (0.0-1.0); MONOCYTES % (AUTO) 4.9 % (1.7-9.3); NEUTROPHILS # (AUTO) 10.3 K/uL (1.8-7.7); NEUTROPHILS % (AUTO) 73.9 % (40.0-70.0); PLATELET COUNT (AUTO) 438 K/uL (130-430); RED BLOOD CELL COUNT(AUTO) 4.21 MIL/uL (4.2-6.2); RED CELL DISTRIBUTION WIDTH 13.4 % (9.0-15.0)
[2019-05-20 06:53] LABS: ANION GAP 5 (5-15); CALCIUM 8.5 mg/dL (8.4-11.0); CHLORIDE 109 mmol/L (98-107); CREATININE 0.81 mg/dL (0.55-1.30); GLUCOSE 88 mg/dL (70-99); POTASSIUM 3.9 mmol/L (3.5-5.1); SODIUM SERUM 135 mmol/L (136-145); UREA NITROGEN, BLOOD 15 mg/dL (8-21)
[2019-05-20 08:06] VITALS: BP_SYST 140
[2019-05-20] MEDS: MEGESTROL ACETATE 400 MG/10 ML UDC PO SCH ×2 (08:23→21:04)
[2019-05-20] MEDS: ASPIRIN 81 MG TAB.CHEW PO SCH (08:24)
[2019-05-20] MEDS: amLODIPine BESYLATE 10 MG TABLET PO SCH (08:24)
[2019-05-20] MEDS: PHENAZOPYRIDINE HCL 100 MG TABLET PO SCH ×2 (08:24→21:04)
[2019-05-20] MEDS: CEFEPIME 1 GM in D5W 50 ML IV SCH ×2 (08:25→21:04)
[2019-05-20] MEDS: EMOLLIENT COMBINATION NO.73 78 GM CREAM..G. TP SCH ×2 (08:25→21:05)
[2019-05-20] MEDS: NYSTATIN 15 GM TOPICAL POWDER TP SCH ×2 (08:25→21:04)
[2019-05-20] MEDS: ENOXAPARIN SODIUM 30 MG/0.3 ML SYRINGE SUBCUT SCH (08:26)
[2019-05-20] MEDS: FLUCONAZOLE 100 mg/ NS 50 ML IV SCH (12:04)
[2019-05-20 12:35] VITALS: BP_SYST 108
[2019-05-20 16:42] VITALS: BP_SYST 136
[2019-05-20 20:00] VITALS: BP_SYST 129
[2019-05-20] MEDS: MILK OF MAGNESIA 30 ML UDC PO SCH (21:04)
[2019-05-20 23:35] VITALS: BP_SYST 146
[2019-05-21 04:00] VITALS: BP_SYST 145
[2019-05-21] MEDS: KCL 20 mEq in D5/0.45NS 1000mL 1,000 ML IV SCH ×3 (04:21→21:34)
[2019-05-21 08:50] VITALS: BP_SYST 132
[2019-05-21] MEDS: CEFEPIME 1 GM in D5W 50 ML IV SCH ×2 (08:58→21:24)
[2019-05-21] MEDS: MEGESTROL ACETATE 400 MG/10 ML UDC PO SCH ×2 (08:58→21:24)
[2019-05-21] MEDS: amLODIPine BESYLATE 10 MG TABLET PO SCH (08:59)
[2019-05-21] MEDS: PHENAZOPYRIDINE HCL 100 MG TABLET PO SCH ×2 (08:59→21:24)
[2019-05-21] MEDS: ASPIRIN 81 MG TAB.CHEW PO SCH (09:00)
[2019-05-21] MEDS: ENOXAPARIN SODIUM 30 MG/0.3 ML SYRINGE SUBCUT SCH (09:02)
[2019-05-21 11:25] VITALS: BP_SYST 122; BP_SYST 147
[2019-05-21] MEDS: EMOLLIENT COMBINATION NO.73 78 GM CREAM..G. TP SCH ×2 (12:18→21:26)
[2019-05-21] MEDS: NYSTATIN 15 GM TOPICAL POWDER TP SCH ×2 (12:18→21:26)
[2019-05-21] MEDS: FLUCONAZOLE 100 mg/ NS 50 ML IV SCH (14:09)
[2019-05-21 15:50] VITALS: BP_SYST 142
[2019-05-21 20:00] VITALS: BP_SYST 153
[2019-05-21] MEDS ORDERED: PHENAZOPYRIDINE HCL 100 MG TABLET ONE (21:08)
[2019-05-21] MEDS: MILK OF MAGNESIA 30 ML UDC PO SCH (21:24)
[2019-05-21] MEDS ORDERED: KCL 20 mEq in D5/0.45NS 1000mL 1,000 ML IV ONE (21:44)
[2019-05-22 02:08] VITALS: BP_SYST 149
[2019-05-22 06:43] LABS: BASOPHILS # (AUTO) 0.1 K/uL (0.0-0.2); BASOPHILS % (AUTO) 0.3 % (0.0-2.0); EOSINOPHILS # (AUTO) 0.3 K/uL (0.0-0.4); EOSINOPHILS % (AUTO) 1.9 % (0.0-4.0); HEMATOCRIT 38.9 % (36-48); HEMOGLOBIN 13.1 g/dL (12.0-16.0); LYMPHOCYTES % (AUTO) 11.1 % (20.5-51.5); MEAN CORPUSCULAR HEMOGLOBIN 31 pg (27-31); MEAN CORPUSCULAR HGB CONC 34 % (32-36); MEAN CORPUSCULAR VOLUME 92 fL (79.0-98.0); MONOCYTES # (AUTO) 1.4 K/uL (0.0-1.0); MONOCYTES % (AUTO) 7.7 % (1.7-9.3); NEUTROPHILS # (AUTO) 14.2 K/uL (1.8-7.7); PLATELET COUNT (AUTO) 427 K/uL (130-430); RED BLOOD CELL COUNT(AUTO) 4.24 MIL/uL (4.2-6.2); RED CELL DISTRIBUTION WIDTH 14.1 % (9.0-15.0); WHITE BLOOD COUNT (AUTO) 17.9 K/uL (4.8-10.8)
[2019-05-22 06:53] LABS: ANION GAP 6 (5-15); CALCIUM 8.7 mg/dL (8.4-11.0); CHLORIDE 106 mmol/L (98-107); CREATININE 0.81 mg/dL (0.55-1.30); GLUCOSE 135 mg/dL (70-99); SODIUM SERUM 134 mmol/L (136-145); UREA NITROGEN, BLOOD 14 mg/dL (8-21)
[2019-05-22 08:21] VITALS: BP_SYST 141
[2019-05-22] MEDS: amLODIPine BESYLATE 10 MG TABLET PO SCH (09:03)
[2019-05-22] MEDS: ASPIRIN 81 MG TAB.CHEW PO SCH (09:04)
[2019-05-22] MEDS: PHENAZOPYRIDINE HCL 100 MG TABLET PO SCH ×2 (09:04→21:54)
[2019-05-22] MEDS: ENOXAPARIN SODIUM 30 MG/0.3 ML SYRINGE SUBCUT SCH (09:05)
[2019-05-22] MEDS: MEGESTROL ACETATE 400 MG/10 ML UDC PO SCH ×2 (09:06→21:54)
[2019-05-22] MEDS: CEFEPIME 1 GM in D5W 50 ML IV SCH (09:08)
[2019-05-22] MEDS: EMOLLIENT COMBINATION NO.73 78 GM CREAM..G. TP SCH ×2 (09:09→21:55)
[2019-05-22] MEDS: NYSTATIN 15 GM TOPICAL POWDER TP SCH ×2 (09:09→21:55)
[2019-05-22] MEDS: KCL 20 mEq in D5/0.45NS 1000mL 1,000 ML IV SCH ×2 (09:39→21:54)
[2019-05-22] MEDS: PIPERACILLIN/TAZO 2.25G/DEX-IS 50 ML IV SCH ×3 (12:36→23:49)
[2019-05-22 12:40] VITALS: BP_SYST 131
[2019-05-22] MEDS: FLUCONAZOLE 100 mg/ NS 50 ML IV SCH (13:24)
[2019-05-22 13:27] LABS: BILIRUBIN,URINE NEGATIVE (NEGATIVE); BLOOD, URINE TRACE (NEGATIVE); CLARITY/URINE CLEAR (CLEAR); COLOR,URINE YELLOW (YELLOW); GLUCOSE,URINE TRACE (NEGATIVE); KETONES,URINE NEGATIVE (NEGATIVE); LEUKOCYTE ESTERASE ,URINE TRACE (NEGATIVE); NITRITE, URINE POSITIVE (NEGATIVE); PH,URINE 6.5 (5.0-8.0); PROTEIN URINE 1+ (NEGATIVE)
[2019-05-22 13:41] LABS: BACTERIA,URINE MODERATE /HPF (None Seen); RBC,URINE 0-3 /HPF (0-3)
[2019-05-22 16:15] VITALS: BP_SYST 121
[2019-05-22 20:00] VITALS: BP_SYST 137
[2019-05-22] MEDS: MILK OF MAGNESIA 30 ML UDC PO SCH (21:54)
[2019-05-23 00:19] VITALS: BP_SYST 149
[2019-05-23 04:00] VITALS: BP_SYST 140
[2019-05-23] MEDS: KCL 20 mEq in D5/0.45NS 1000mL 1,000 ML IV SCH ×2 (05:07→22:00)
[2019-05-23] MEDS: PIPERACILLIN/TAZO 2.25G/DEX-IS 50 ML IV SCH ×4 (06:14→23:43)
[2019-05-23 06:29] LABS: BASOPHILS % (AUTO) 0.3 % (0.0-2.0); EOSINOPHILS # (AUTO) 0.2 K/uL (0.0-0.4); EOSINOPHILS % (AUTO) 1.5 % (0.0-4.0); HEMATOCRIT 38.1 % (36-48); LYMPHOCYTES # (AUTO) 1.9 K/uL (1.0-5.5); LYMPHOCYTES % (AUTO) 11.9 % (20.5-51.5); MEAN CORPUSCULAR HEMOGLOBIN 31 pg (27-31); MEAN CORPUSCULAR HGB CONC 34 % (32-36); MEAN CORPUSCULAR VOLUME 92 fL (79.0-98.0); MONOCYTES # (AUTO) 1.4 K/uL (0.0-1.0); NEUTROPHILS # (AUTO) 12.5 K/uL (1.8-7.7); NEUTROPHILS % (AUTO) 77.3 % (40.0-70.0); PLATELET COUNT (AUTO) 437 K/uL (130-430); RED BLOOD CELL COUNT(AUTO) 4.14 MIL/uL (4.2-6.2); RED CELL DISTRIBUTION WIDTH 13.6 % (9.0-15.0); WHITE BLOOD COUNT (AUTO) 16.2 K/uL (4.8-10.8)
[2019-05-23 08:00] VITALS: BP_SYST 158
[2019-05-23] MEDS: ENOXAPARIN SODIUM 30 MG/0.3 ML SYRINGE SUBCUT SCH (08:56)
[2019-05-23] MEDS: PHENAZOPYRIDINE HCL 100 MG TABLET PO SCH ×2 (08:57→22:05)
[2019-05-23] MEDS: MEGESTROL ACETATE 400 MG/10 ML UDC PO SCH ×2 (08:57→21:58)
[2019-05-23] MEDS: NYSTATIN 15 GM TOPICAL POWDER TP SCH ×2 (08:58→22:01)
[2019-05-23] MEDS: EMOLLIENT COMBINATION NO.73 78 GM CREAM..G. TP SCH ×2 (08:58→22:01)
[2019-05-23] MEDS: ASPIRIN 81 MG TAB.CHEW PO SCH (08:58)
[2019-05-23] MEDS: amLODIPine BESYLATE 10 MG TABLET PO SCH (08:58)
[2019-05-23 12:58] VITALS: BP_SYST 112
[2019-05-23] MEDS: FLUCONAZOLE 100 mg/ NS 50 ML IV SCH (13:30)
[2019-05-23 16:35] VITALS: BP_SYST 121
[2019-05-23 20:00] VITALS: BP_SYST 136
[2019-05-23] MEDS: QUEtiapine FUMARATE 25 MG TABLET PO SCH (21:58)
[2019-05-23] MEDS: MILK OF MAGNESIA 30 ML UDC PO SCH (21:59)
[2019-05-24 00:58] VITALS: BP_SYST 150
[2019-05-24] MEDS: KCL 20 mEq in D5/0.45NS 1000mL 1,000 ML IV SCH ×3 (01:07→21:07)
[2019-05-24] MEDS: PIPERACILLIN/TAZO 2.25G/DEX-IS 50 ML IV SCH ×3 (05:33→17:33)
[2019-05-24 08:17] VITALS: BP_SYST 126
[2019-05-24] MEDS: MEGESTROL ACETATE 400 MG/10 ML UDC PO SCH ×2 (09:43→21:41)
[2019-05-24] MEDS: PHENAZOPYRIDINE HCL 100 MG TABLET PO SCH ×2 (09:44→21:41)
[2019-05-24] MEDS: amLODIPine BESYLATE 10 MG TABLET PO SCH (09:45)
[2019-05-24] MEDS: ASPIRIN 81 MG TAB.CHEW PO SCH (09:45)
[2019-05-24] MEDS: QUEtiapine FUMARATE 25 MG TABLET PO SCH ×2 (09:45→21:41)
[2019-05-24] MEDS: NYSTATIN 15 GM TOPICAL POWDER TP SCH ×2 (09:46→21:42)
[2019-05-24] MEDS: EMOLLIENT COMBINATION NO.73 78 GM CREAM..G. TP SCH ×2 (09:46→21:42)
[2019-05-24] MEDS: ENOXAPARIN SODIUM 30 MG/0.3 ML SYRINGE SUBCUT SCH (09:48)
[2019-05-24 12:03] VITALS: BP_SYST 99
[2019-05-24 16:55] VITALS: BP_SYST 128
[2019-05-24 20:00] VITALS: BP_SYST 124
[2019-05-24] MEDS: MILK OF MAGNESIA 30 ML UDC PO SCH (21:41)
[2019-05-25] MEDS: PIPERACILLIN/TAZO 2.25G/DEX-IS 50 ML IV SCH ×4 (00:05→17:32)
[2019-05-25] MEDS: KCL 20 mEq in D5/0.45NS 1000mL 1,000 ML IV SCH ×4 (00:08→21:52)
[2019-05-25 02:46] VITALS: BP_SYST 127
[2019-05-25 08:14] VITALS: BP_SYST 121
[2019-05-25] MEDS: amLODIPine BESYLATE 10 MG TABLET PO SCH (09:10)
[2019-05-25] MEDS: ENOXAPARIN SODIUM 30 MG/0.3 ML SYRINGE SUBCUT SCH (09:11)
[2019-05-25] MEDS: PHENAZOPYRIDINE HCL 100 MG TABLET PO SCH ×2 (09:11→21:57)
[2019-05-25] MEDS: QUEtiapine FUMARATE 25 MG TABLET PO SCH ×2 (09:11→21:51)
[2019-05-25] MEDS: ASPIRIN 81 MG TAB.CHEW PO SCH (09:11)
[2019-05-25] MEDS: MEGESTROL ACETATE 400 MG/10 ML UDC PO SCH ×2 (09:11→21:52)
[2019-05-25] MEDS: NYSTATIN 15 GM TOPICAL POWDER TP SCH ×2 (09:12→21:51)
[2019-05-25] MEDS: EMOLLIENT COMBINATION NO.73 78 GM CREAM..G. TP SCH ×2 (09:12→21:51)
[2019-05-25 12:10] VITALS: BP_SYST 122
[2019-05-25 16:35] VITALS: BP_SYST 145
[2019-05-25 21:00] VITALS: BP_SYST 139
[2019-05-25] MEDS: DIPHENHYDRAMINE HCL 25 MG CAPSULE PO PRN (21:51)
[2019-05-25] MEDS: MILK OF MAGNESIA 30 ML UDC PO SCH (21:52)
[2019-05-26] MEDS: PIPERACILLIN/TAZO 2.25G/DEX-IS 50 ML IV SCH ×4 (00:06→18:09)
[2019-05-26 00:28] VITALS: BP_SYST 121
[2019-05-26 08:00] VITALS: BP_SYST 150
[2019-05-26] MEDS: MEGESTROL ACETATE 400 MG/10 ML UDC PO SCH ×2 (09:18→20:51)
[2019-05-26] MEDS: DIPHENHYDRAMINE HCL 25 MG CAPSULE PO PRN (09:18)
[2019-05-26] MEDS: NYSTATIN 15 GM TOPICAL POWDER TP SCH ×2 (09:18→20:52)
[2019-05-26] MEDS: QUEtiapine FUMARATE 25 MG TABLET PO SCH ×2 (09:19→20:51)
[2019-05-26] MEDS: amLODIPine BESYLATE 10 MG TABLET PO SCH (09:19)
[2019-05-26] MEDS: ASPIRIN 81 MG TAB.CHEW PO SCH (09:19)
[2019-05-26] MEDS: ENOXAPARIN SODIUM 30 MG/0.3 ML SYRINGE SUBCUT SCH (09:20)
[2019-05-26] MEDS: PHENAZOPYRIDINE HCL 100 MG TABLET PO SCH ×2 (09:20→20:51)
[2019-05-26] MEDS: EMOLLIENT COMBINATION NO.73 78 GM CREAM..G. TP SCH (09:21)
[2019-05-26 12:44] VITALS: BP_SYST 124
[2019-05-26 16:31] VITALS: BP_SYST 155
[2019-05-26] MEDS: KCL 20 mEq in D5/0.45NS 1000mL 1,000 ML IV SCH ×2 (18:09→20:55)
[2019-05-26 20:00] VITALS: BP_SYST 124
[2019-05-26] MEDS: MILK OF MAGNESIA 30 ML UDC PO SCH (20:51)
[2019-05-27] MEDS: EMOLLIENT COMBINATION NO.73 78 GM CREAM..G. TP SCH ×3 (00:32→21:00)
[2019-05-27] MEDS: PIPERACILLIN/TAZO 2.25G/DEX-IS 50 ML IV SCH ×3 (00:33→13:46)
[2019-05-27 00:36] VITALS: BP_SYST 117
[2019-05-27 08:00] VITALS: BP_SYST 147
[2019-05-27 08:00] LABS: BASOPHILS % (AUTO) 0.4 % (0.0-2.0); EOSINOPHILS # (AUTO) 0.5 K/uL (0.0-0.4); EOSINOPHILS % (AUTO) 4.5 % (0.0-4.0); HEMATOCRIT 30.2 % (36-48); HEMOGLOBIN 10.5 g/dL (12.0-16.0); LYMPHOCYTES # (AUTO) 1.7 K/uL (1.0-5.5); LYMPHOCYTES % (AUTO) 16.7 % (20.5-51.5); MEAN CORPUSCULAR HEMOGLOBIN 32 pg (27-31); MEAN CORPUSCULAR HGB CONC 35 % (32-36); MEAN CORPUSCULAR VOLUME 92 fL (79.0-98.0); MONOCYTES # (AUTO) 0.7 K/uL (0.0-1.0); MONOCYTES % (AUTO) 6.7 % (1.7-9.3); NEUTROPHILS # (AUTO) 7.2 K/uL (1.8-7.7); NEUTROPHILS % (AUTO) 71.7 % (40.0-70.0); PLATELET COUNT (AUTO) 406 K/uL (130-430); RED BLOOD CELL COUNT(AUTO) 3.29 MIL/uL (4.2-6.2); RED CELL DISTRIBUTION WIDTH 14.3 % (9.0-15.0); WHITE BLOOD COUNT (AUTO) 10.1 K/uL (4.8-10.8)
[2019-05-27 08:20] LABS: ANION GAP 6 (5-15); CALCIUM 8.5 mg/dL (8.4-11.0); CHLORIDE 104 mmol/L (98-107); CREATININE 1.03 mg/dL (0.55-1.30); GLUCOSE 188 mg/dL (70-99); POTASSIUM 3.9 mmol/L (3.5-5.1); SODIUM SERUM 134 mmol/L (136-145); UREA NITROGEN, BLOOD 17 mg/dL (8-21)
[2019-05-27] MEDS: ASPIRIN 81 MG TAB.CHEW PO SCH (08:43)
[2019-05-27] MEDS: MEGESTROL ACETATE 400 MG/10 ML UDC PO SCH ×2 (08:43→21:00)
[2019-05-27] MEDS: DIPHENHYDRAMINE HCL 25 MG CAPSULE PO PRN (08:44)
[2019-05-27] MEDS: amLODIPine BESYLATE 10 MG TABLET PO SCH (08:44)
[2019-05-27] MEDS: QUEtiapine FUMARATE 25 MG TABLET PO SCH ×2 (08:44→21:00)
[2019-05-27] MEDS: NYSTATIN 15 GM TOPICAL POWDER TP SCH ×2 (08:45→21:00)
[2019-05-27] MEDS: ENOXAPARIN SODIUM 30 MG/0.3 ML SYRINGE SUBCUT SCH (08:47)
[2019-05-27] MEDS: PHENAZOPYRIDINE HCL 100 MG TABLET PO SCH ×2 (08:51→21:00)
[2019-05-27] MEDS: KCL 20 mEq in D5/0.45NS 1000mL 1,000 ML IV SCH ×2 (08:52→18:43)
[2019-05-27 12:38] VITALS: BP_SYST 142
[2019-05-27 16:54] VITALS: BP_SYST 143
[2019-05-27] MEDS: MILK OF MAGNESIA 30 ML UDC PO SCH (21:00)
[2019-05-28] MEDS: KCL 20 mEq in D5/0.45NS 1000mL 1,000 ML IV SCH ×2 (05:07→15:07)
[2019-05-28 06:28] VITALS: BP_SYST 161
[2019-05-28 08:00] VITALS: BP_SYST 126
[2019-05-28] MEDS: MEGESTROL ACETATE 400 MG/10 ML UDC PO SCH ×2 (10:35→23:00)
[2019-05-28] MEDS: ASPIRIN 81 MG TAB.CHEW PO SCH (10:35)
[2019-05-28] MEDS: amLODIPine BESYLATE 10 MG TABLET PO SCH (10:35)
[2019-05-28] MEDS: PHENAZOPYRIDINE HCL 100 MG TABLET PO SCH ×2 (10:36→21:00)
[2019-05-28] MEDS: QUEtiapine FUMARATE 25 MG TABLET PO SCH ×2 (10:36→22:20)
[2019-05-28] MEDS: ENOXAPARIN SODIUM 30 MG/0.3 ML SYRINGE SUBCUT SCH (10:38)
[2019-05-28] MEDS: NYSTATIN 15 GM TOPICAL POWDER TP SCH ×2 (10:40→22:30)
[2019-05-28] MEDS: EMOLLIENT COMBINATION NO.73 78 GM CREAM..G. TP SCH ×2 (10:40→23:00)
[2019-05-28 13:04] VITALS: BP_SYST 145
[2019-05-28 17:08] VITALS: BP_SYST 163
[2019-05-28 20:54] VITALS: BP_SYST 142
[2019-05-29] MEDS: MILK OF MAGNESIA 30 ML UDC PO SCH ×2 (00:01→21:36)
[2019-05-29 00:10] VITALS: BP_SYST 146
[2019-05-29] MEDS: KCL 20 mEq in D5/0.45NS 1000mL 1,000 ML IV SCH ×3 (01:07→22:37)
[2019-05-29 08:00] VITALS: BP_SYST 100
[2019-05-29] MEDS: ASPIRIN 81 MG TAB.CHEW PO SCH (09:15)
[2019-05-29] MEDS: amLODIPine BESYLATE 10 MG TABLET PO SCH (09:15)
[2019-05-29] MEDS: MEGESTROL ACETATE 400 MG/10 ML UDC PO SCH ×2 (09:15→21:33)
[2019-05-29] MEDS: PHENAZOPYRIDINE HCL 100 MG TABLET PO SCH ×2 (09:15→22:40)
[2019-05-29] MEDS: QUEtiapine FUMARATE 25 MG TABLET PO SCH ×2 (09:16→21:34)
[2019-05-29] MEDS: ENOXAPARIN SODIUM 30 MG/0.3 ML SYRINGE SUBCUT SCH (09:19)
[2019-05-29] MEDS: EMOLLIENT COMBINATION NO.73 78 GM CREAM..G. TP SCH ×2 (09:25→21:39)
[2019-05-29] MEDS: NYSTATIN 15 GM TOPICAL POWDER TP SCH ×2 (09:25→21:35)
[2019-05-29 12:06] VITALS: BP_SYST 108
[2019-05-29 16:00] VITALS: BP_SYST 132
[2019-05-29 20:30] VITALS: BP_SYST 138
[2019-05-30 00:20] VITALS: BP_SYST 138
[2019-05-30 08:00] VITALS: BP_SYST 149
[2019-05-30] MEDS: PHENAZOPYRIDINE HCL 100 MG TABLET PO SCH (09:22)
[2019-05-30] MEDS: MEGESTROL ACETATE 400 MG/10 ML UDC PO SCH (09:22)
[2019-05-30] MEDS: QUEtiapine FUMARATE 25 MG TABLET PO SCH ×2 (09:22→21:22)
[2019-05-30] MEDS: ASPIRIN 81 MG TAB.CHEW PO SCH (09:23)
[2019-05-30] MEDS: amLODIPine BESYLATE 10 MG TABLET PO SCH (09:23)
[2019-05-30] MEDS: NYSTATIN 15 GM TOPICAL POWDER TP SCH (09:24)
[2019-05-30] MEDS: EMOLLIENT COMBINATION NO.73 78 GM CREAM..G. TP SCH (09:24)
[2019-05-30] MEDS: ENOXAPARIN SODIUM 30 MG/0.3 ML SYRINGE SUBCUT SCH (09:25)
[2019-05-30] MEDS: KCL 20 mEq in D5/0.45NS 1000mL 1,000 ML IV SCH ×2 (09:26→17:07)
[2019-05-30 12:15] VITALS: BP_SYST 132
[2019-05-30 16:10] VITALS: BP_SYST 114
[2019-05-30 20:00] VITALS: BP_SYST 113
[2019-05-30 20:34] VITALS: BP_SYST 113
== END 2019-05-30 22:05 | DRG 871 ==
LOC: STU 22:42 → SMU 05-24 09:34
PROVIDERS: ADMIT Family Medicine; ATTEND Family Medicine
PROC: B54NZZA Ultrasonography of Left Upper Extremity Veins, Guidance (ICD-10-PCS; 2019-05-17)
PROC: 05HY33Z Insertion of Infusion Device into Upper Vein, Percutaneous Approach (ICD-10-PCS; 2019-05-17)
PROC: 0DH63UZ Insertion of Feeding Device into Stomach, Percutaneous Approach (ICD-10-PCS; principal; 2019-05-19 11:00)
DX: A41.9 Sepsis, unspecified organism (principal); J69.0 Pneumonitis due to inhalation of food and vomit; G93.41 Metabolic encephalopathy; E87.0 Hyperosmolality and hypernatremia; N17.9 Acute kidney failure, unspecified; B37.49 Other urogenital candidiasis; E46 Unspecified protein-calorie malnutrition; F03.90 Unspecified dementia, unspecified severity, without behavioral disturbance, psychotic disturbance, mood disturbance, and anxiety; E86.0 Dehydration; I10 Essential (primary) hypertension; R13.10 Dysphagia, unspecified; F29 Unspecified psychosis not due to a substance or known physiological condition; Z74.01 Bed confinement status; Z86.73 Personal history of transient ischemic attack (TIA), and cerebral infarction without residual deficits; Z90.49 Acquired absence of other specified parts of digestive tract; Z79.82 Long term (current) use of aspirin; Z79.899 Other long term (current) drug therapy; Z68.23 Body mass index [BMI] 23.0-23.9, adult
CPT/HCPCS: 36415; 43246; 71045; 76770; 80048; 80053; 81000-TC; 83735-TC; 84100-TC; 85025; 85610-TC; 85730-TC; 87040-TC; 87081; 87086; 92610-GN; 93005; 97112-GP; 97116-GP; 97530-GP; C1751; G0378; J0692; J1450; J1630; J1650; J2175; J2250; J2543; J3490; J7040; J7060; Q0163